=== PATIENT | female | born 1975 ===

== ENCOUNTER 2020-05-19 06:55 | Outpatient (CLI) | payer OTHER ==
--- NOTE | 2020-05-19 07:53 | ULT ---
TRANSABDOMINAL PELVIC ULTRASOUND: HISTORY: Patient has a feeling of movement and discomfort in her pelvic area x5 months. COMPARISON: None. TECHNIQUE: Transabdominal imaging of the pelvis is performed. Ovaries are interrogated with grayscale, color maria luz w, Doppler and spectral waveform analysis. FINDINGS: Uterus is identified, measuring 5.5 x 9.4 x 5.8 cm. There are no myometrial masses. Visualized endometrium measures 0.9 cm and has a homogeneous echotexture line there is no mass or flu id in the pelvis. Right ovary has a normal echotexture, measuring 2.9 x 3.8 x 1.4 cm. There does appear to be follicle present. Left ovary has a normal echotexture, measuring 4.3 x 2.9 x 3.5 cm. There is a 2.3 x 2.6 x 3.4 cm anec hoic focus compatible with a left ovarian cyst. Ovarian Doppler: There is vascular flow to the right and left ovary. IMPRESSION: Left ovarian cyst. Follow-up ultrasound in 8 weeks to ensure resolution. Transcribed Date/Time: 05/19/2020 9:52 AM
== END 2020-05-19 06:56 | disposition home or self-care (01) ==
LOC: BICULT 06:55
PROVIDERS: ATTEND Family Medicine
DX: N83.202 Unspecified ovarian cyst, left side (principal); R10.2 Pelvic and perineal pain; N94.89 Other specified conditions associated with female genital organs and menstrual cycle
CPT/HCPCS: 76856; 93976